=== PATIENT | female | born 2000 | race Asian ===

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

== ENCOUNTER 2018-07-29 11:39 | Emergency (ER) | payer OTHER ==
[~2018-07-29] VITALS: Ht 162.6 cm; Wt 81.6 kg
[~2018-07-29 11:39] MED LIST: IRON45 MG PO; PRENATAL1 T10 PO
[2018-07-29 11:50] VITALS: TEMP 98.4
[2018-07-29 14:10] VITALS: BP 121/77
== END 2018-07-29 14:10 | disposition home or self-care (01) ==
LOC: ED 11:39
DX: J02.9 Acute pharyngitis, unspecified (principal)
CPT/HCPCS: 87502; 87651; 99283

== ENCOUNTER 2021-06-19 12:22 | Observation (INO) | payer OTHER ==
[~2021-06-19] VITALS: Ht 162.6 cm; Wt 73.5 kg
[2021-06-19] VITALS (8 sets, daily range): BP systolic 117–140; BP diastolic 61–88; TEMP 98.3–99; Ht 162.6 cm; Wt 73.5 kg
[2021-06-19 13:40] LABS: PLATELET COUNT 298 K/uL (152-353)
[2021-06-19 13:49] LABS: POTASSIUM 3.9 mmol/L (3.6-5.2)
[2021-06-20] VITALS: BP 126/68; TEMP 99.4
[2021-06-20 04:00] VITALS: BP 118/64; TEMP 98.2
[2021-06-20 05:10] LABS: PLATELET COUNT 307 K/uL (152-353)
[2021-06-20 05:23] LABS: POTASSIUM 3.3 mmol/L (3.6-5.2)
[2021-06-20 08:00] VITALS: BP 120/74; TEMP 98.6
[2021-06-20 12:00] VITALS: BP 118/71; TEMP 98.4
[2021-06-20 16:00] VITALS: BP 129/70; TEMP 98
[2021-06-20 20:00] VITALS: BP 127/76; TEMP 97.8
== END 2021-06-20 20:45 | disposition left against medical advice (07) ==
LOC: ED 12:22 → MED/SURG 14:30
PROVIDERS: Emergency Medicine; ADMIT Internal Medicine Endocrinology, Diabetes & Metabolism; ATTEND Internal Medicine Endocrinology, Diabetes & Metabolism
DX: J45.901 Unspecified asthma with (acute) exacerbation (principal); Z72.0 Tobacco use; D72.828 Other elevated white blood cell count
CPT/HCPCS: 36415; 80048; 85027; 85379; 87635; 93005; 94640; 94644; 94664; 94760; 96365; 96372; 96375; 99220; 99283; G0378; J0456; J1885; J2920; U0003

== ENCOUNTER 2022-08-23 12:44 | Emergency (ER) | payer OTHER ==
[~2022-08-23] VITALS: Ht 162.6 cm; Wt 72.6 kg
[2022-08-23 12:52] VITALS: BP 154/95; TEMP 98.9
[2022-08-23 13:48] LABS: PLATELET COUNT 339 K/uL (152-353)
[2022-08-23 13:55] LABS: POTASSIUM 4.1 mmol/L (3.6-5.2)
== END 2022-08-23 15:23 | disposition home or self-care (01) ==
LOC: ED 12:44
PROVIDERS: Family Medicine
DX: J20.9 Acute bronchitis, unspecified (principal); R05.8 Other specified cough; J30.89 Other allergic rhinitis; Z20.822 Contact with and (suspected) exposure to COVID-19
CPT/HCPCS: 36415; 80053; 80307; 81002; 81025; 85027; 87502; 87635; 94664; 96372; 99283; J2930; U0003

== ENCOUNTER 2022-11-23 21:42 | Emergency (ER) | payer OTHER ==
[~2022-11-23] VITALS: Ht 162.6 cm; Wt 77.1 kg
[2022-11-23 21:50] VITALS: TEMP 97.6
[2022-11-23 23:50] VITALS: BP 136/76
== END 2022-11-23 23:50 | disposition home or self-care (01) ==
LOC: ED 21:42
DX: J45.909 Unspecified asthma, uncomplicated (principal)
CPT/HCPCS: 81025; 94664; 96372; 99282; J2930

== ENCOUNTER 2022-11-25 01:49 | Emergency (ER) | payer OTHER ==
[~2022-11-25] VITALS: Ht 162.6 cm; Wt 77.1 kg
[2022-11-25 02:39] LABS: PLATELET COUNT 361 K/uL (152-353)
[2022-11-25 02:56] LABS: POTASSIUM 3.6 mmol/L (3.6-5.2)
[2022-11-25 05:03] VITALS: BP 108/79; TEMP 98.6
== END 2022-11-25 05:03 | disposition home or self-care (01) ==
LOC: ED 01:49
PROVIDERS: Family Medicine
DX: J06.9 Acute upper respiratory infection, unspecified (principal); F17.290 Nicotine dependence, other tobacco product, uncomplicated
CPT/HCPCS: 36415; 80053; 85027; 87502; 94664; 96372; 99283; J1100